=== PATIENT | female | born 1975 | race Caucasian/White ===

== ENCOUNTER 2019-03-05 10:36 | Inpatient (IN) | payer MEDICAID ==
[~2019-03-05] VITALS: Ht 175.3 cm; Wt 79.4 kg
[2019-03-05 10:38] VITALS: BP 120/80
--- NOTE | 2019-03-05 10:38 | NUR ---
Patient BIBA BLS accompanied by [place] [employer], transferred to bed 5. RN evaluating patient at bedside.
--- NOTE | 2019-03-05 10:47 | NUR ---
Dr. Red evaluating patient at bedside.
--- NOTE | 2019-03-05 11:02 | NUR ---
PHLEB at bedside.
--- NOTE | 2019-03-05 11:09 | NUR ---
brought in by EMS from fire station 151 pt walked into fire station asking for help; suicidal ideation---plan is to overdose on meds denies homicidal ideation; denies visual/auditory hallucinations admits to have drank alcohol today. DENIES N/V/D; SKIN IS PINK/WARM/DRY; AAOX4 WITH EVEN AND STEADY GAIT; LUNGS CLEAR BL; HR EVEN AND REGULAR; PT DENIES ANY FEVER, CP, SOB, OR COUGH AT THIS TIME; PATIENT STATES PAIN OF 7/10 AT THIS TIME ON HER MID-ABDOMINAL, RADIATES TO UPPER BACK; VSS; PATIENT POSITIONED FOR COMFORT; HOB ELEVATED; BEDRAILS UP X2; BED DOWN. ER MD MADE AWARE OF PT STATUS.
[2019-03-05 11:16] LABS: BASOPHILS # (AUTO) 0.2 K/uL (0.00-0.22); BASOPHILS % (AUTO) 4.1 % (0.0-2.0); EOSINOPHILS # (AUTO) 0.1 K/uL (0-0.4); HEMATOCRIT 31.3 % (36-48); HEMOGLOBIN 9.8 g/dL (12.0-16.0); LYMPHOCYTES # (AUTO) 0.9 K/uL (2.5-16.5); MEAN CORPUSCULAR HEMOGLOBIN 23 pg (27-31); MEAN CORPUSCULAR HGB CONC 31 g/dL (33-37); MONOCYTES # (AUTO) 0.3 K/uL (0.8-1.0); MONOCYTES % (AUTO) 6.5 % (1.7-9.3); NEUTROPHILS # (AUTO) 3.7 K/uL (1.8-7.7); PLATELET COUNT (AUTO) 332 K/uL (140-450); RED BLOOD CELL COUNT(AUTO) 4.23 MIL/uL (4.20-5.40); RED CELL DISTRIBUTION WIDTH 21.5 % (11.6-13.7); WHITE BLOOD COUNT (AUTO) 5.2 K/uL (4.8-10.8)
[2019-03-05] MEDS ORDERED: LORazepam 1 MG TAB PO ONE (11:25)
[2019-03-05 11:27] LABS: ANION GAP 19.1 (8-16); CARBON DIOXIDE 18.9 mmol/L (21-32); CHLORIDE 104 mmol/L (98-107); CREATININE 0.7 mg/dL (0.6-1.3); GFR ARICAN-AMERICAN 119 mL/min (>90); GLUCOSE 81 mg/dL (74-106); SODIUM SERUM 138 mmol/L (136-145); UREA NITROGEN, BLOOD 17 mg/dL (7-18)
[2019-03-05 11:32] LABS: BARBITURATE, URINE NEG. ng/ml (NEG <=200); BENZODIAZEPINE, URINE NEG. ng/mL (NEG <=200); CANNABINOID, URINE NEG. ng/mL (NEG <=50); COCAINE, URINE NEG. ng/mL (NEG <=300); OPIATE, URINE NEG. ng/mL (NEG <=2000); PHENCYCLIDINE SCREEN,URINE NEG. ng/mL (NEG <=25)
[2019-03-05 11:35] LABS: ALBUMIN 3.5 g/dL (3.4-5.0); ASPARTATE AMINOTRANSFERASE 85 U/L (15-37); TOTAL BILIRUBIN 0.3 mg/dL (0.0-1.0)
[2019-03-05 11:36] LABS: ACETAMINOPHEN < 0.5 ug/ml (10-30); SALICYLATE < 2.8 mg/dL (2.8-20.0)
[2019-03-05 11:41] LABS: LYMPHOCYTES % (AUTO) 17.3 % (20.5-51.1); NEUTROPHILS % (AUTO) 70.1 % (42.2-75.2)
[2019-03-05] MEDS ORDERED: NACL 0.9% 1,000 ML IV ONE (12:00)
--- NOTE | 2019-03-05 12:05 | NUR ---
PT STATED SHE DOES NOT HAVE PLAN TO HURT HERSELF AT THIS MOMENT.
--- NOTE | 2019-03-05 14:15 | NUR ---
PHLEB at bedside for secondary blood draw.
--- NOTE | 2019-03-05 14:41 | NUR ---
Telepsychiatry consultation ordered as requested by Dr. Red.
--- NOTE | 2019-03-05 14:53 | NUR ---
Call Center is aware of patient and will contact contracted [facility] psych facilities. Chart has been received and will update the ED when a bed becomes available.
[2019-03-05] MEDS ORDERED: KETOROLAC 30 MG/ML VIAL IVP ONE (15:15)
[2019-03-05] MEDS ORDERED: PANTOPRAZOLE 40 MG INJ VIAL IVP ONE (15:15)
--- NOTE | 2019-03-05 17:12 | NUR ---
, PSYCHIATRIST CALLED FOR MEDICAL INFORMATION REGARDING PATIENT PRIOR TO HIS EVALUATION TO PATIENT.
--- NOTE | 2019-03-05 17:21 | NUR ---
TELEPSYCH.EVAL. IN PROGRESS
[2019-03-05] MEDS ORDERED: LORazepam 2 MG/ML VIAL IVP ONE (17:35)
[2019-03-05] MEDS ORDERED: ACETAMINOPHEN 325 MG TAB PO PRN (17:45)
[2019-03-05] MEDS ORDERED: ONDANSETRON 4 MG/2 ML VIAL IM/IVP PRN (17:45)
[2019-03-05] MEDS ORDERED: DOCUSATE SODIUM 100 MG GELCAP PO PRN (17:45)
--- NOTE | 2019-03-05 17:55 | NUR ---
PT'S IV ON LEFT HAND HAS BEEN REMOVED. SKIN IS NORMAL, NO ERYTHEMA OR EDEMA.
[2019-03-05 18:24] LABS: PROTHROMBIN TIME 8.9 secs (10.8-13.4)
[2019-03-05 18:33] LABS: MAGNESIUM 2.2 mg/dL (1.8-2.4); PHOSPHORUS 4.6 mg/dL (2.5-4.9); THYROID STIMULATING HORMONE 9.35 uIU/mL (0.34-3.74)
--- NOTE | 2019-03-05 19:10 | NUR ---
RECEIVED FROM REPORT FROM ÁNGEL LERNER. TRANSFER OF CARE AT THIS TIME.
--- NOTE | 2019-03-05 19:10 | NUR ---
ENDORSED PT TO PM NURSE.
[2019-03-05] MEDS ORDERED: NACL 0.9% 1,000 ML IV SCH (20:00)
--- NOTE | 2019-03-05 20:10 | NUR ---
PT AWAKE AND SITTING IN BED. VSS. EMT BEDSIDE, 1:1 MONITORING. SAFETY PRECAUTIONS IN PLACE. WILL CONTINUE TO MONITOR.
[2019-03-05] MEDS ORDERED: DICYCLOMINE HCL LIQUID 20 MG, ALUMINUM HYD/MAG/SIMETHICONE 30 ML, LIDOCAINE VISCOUS 2% ... PO ONE ×3 (20:40)
[2019-03-05 21:05] VITALS: BP 130/69
--- NOTE | 2019-03-05 21:05 | NUR ---
Patient will be admitted to care of Dr. Ruiz. Admited to [facility]. Will go to room 109B. Belongings list completed. VSS at time of transport. Report to ÁNGEL Schultz. Transfer of care at this time.
--- NOTE | 2019-03-05 21:05 | NUR ---
RECEIVED BEDSIDE REPORT FROM COPPING MACHINE OPERATOR, PATIENT ON 5150 HOLD, SITTER AT BEDSIDE. PATIENT AMBULATORY, NO SIGNS OF ACUTE DISTRESS, IV IN RIGHT HAND 22 G SL, SKIN IS INTACT, PATIENT C/O OF DIARRHEA, WILL CALL DR FOR ORDERS. DRESSING INTACT, V/S STABLE, MRSA SCREEN COLLECTED AND SENT TO LAB, EXPLAINED PLAN OF CARE, OFFERED FOOD AND WATER. PATIENT C/O ANXIETY WILL CALL DR FOR ORDERS.
[2019-03-05] MEDS ORDERED: traMADol 50 MG TAB PO PRN (21:30)
--- NOTE | 2019-03-05 21:30 | NUR ---
CALLED DR MONZON NO ATIVAN AT THIS TIME DUE TO PATIENT RECENTLY RECEIVED ATIVAN, AND NO NEED FOR STOOL COLLECTION AT THIS TIME UNTIL STOOL IS SEEN TO BE DIARRHEA AND PATIENT ON RECENT ANTIBIOTICS.
[2019-03-05] MEDS ORDERED: GABA300C PO (21:34)
[2019-03-05] MEDS ORDERED: QUET25TA PO (21:34)
[2019-03-05] MEDS ORDERED: SYN.05 PO (21:34)
[2019-03-05] MEDS ORDERED: HYDR25CA1 PO (21:34)
--- NOTE | 2019-03-05 22:13 | NUR ---
New referral packet has been faxed out to [facility]. Call Center will update the unit when a bed becomes available.
--- NOTE | 2019-03-05 22:15 | NUR ---
EXPLAINED TO PATIENT NEED FOR URINE SAMPLE
[2019-03-05] MEDS: LORazepam 2 MG/ML VIAL IM/IVP PRN (22:22)
--- NOTE | 2019-03-05 22:31 | NUR ---
GAVE ATIVAN FOR ANXIETY AND STARTED NS AT 100 ML/HR
[2019-03-05 23:47] VITALS: BP 115/60
--- NOTE | 2019-03-06 01:03 | NUR ---
PATIENT ASLEEP IN BED, WILL CONTINUE WITH 1:1 SITTER.
[2019-03-06] MEDS ORDERED: LORazepam 2 MG/ML VIAL IM/IVP PRN (01:40)
--- NOTE | 2019-03-06 01:53 | NUR ---
SPOKE WITH DR MONZON REGARDING BANANA BAG. TOLD BY CHARGE NURSE ELIJAH WE CANNOT MIX BANANA BAG COMPONENTS ON TELE. TOLD TO ONLY GIVE IM THIAMINE INJECTION AND OTHER COMPONENTS WILL BE MIXED IN MORNING WITH PHARMACY.
[2019-03-06] MEDS ORDERED: MAG SULF 2000 MG/WATER PREMIX 50 ML IV ONE (02:00)
[2019-03-06] MEDS ORDERED: FOLIC ACID 5 MG/ML SYR IM SCH (02:00)
[2019-03-06] MEDS ORDERED: THIAMINE 200 MG/2 ML VIAL IM SCH (02:00)
[2019-03-06] MEDS ORDERED: MULTIVITAMIN-12 10 ML in NACL 0.9% 1,000 ML IV ONE (02:00)
--- NOTE | 2019-03-06 02:28 | NUR ---
Follow up calls were made to contracted [facility] facilities for bed placement. Still no bed vacancies at this time. Call Center will follow up in the AM to check for pending discharges.
--- NOTE | 2019-03-06 02:30 | NUR ---
PLACED PATIENT ON SEIZURE PRECAUTIONS
[2019-03-06] MEDS: DEXT 5% / NACL 0.45% 1,000 ML IV SCH ×3 (03:45→21:25)
--- NOTE | 2019-03-06 03:49 | NUR ---
GAVE THIAMINE AND FOLIC ACID IM. STARTED D5W/0.45 NS AT 100 ML/HR
[2019-03-06] MEDS: LEVOTHYROXINE 0.05 MG TAB PO SCH (05:36)
--- NOTE | 2019-03-06 05:58 | NUR ---
DUE MEDICATION GIVEN
--- NOTE | 2019-03-06 07:23 | NUR ---
ENDORSED PATIENT TO DAY SHIFT NURSE FOR CONTINUITY OF CARE. PATIENT STABLE.
--- NOTE | 2019-03-06 07:24 | NUR ---
RECEIVED BEDSIDE REPORT FROM SERVICE AGENT NURSE. PATIENT IS AWAKE, ALERT AND ORIENTEDX4. NO SIGNS OF DISTRESS ON RA. SKIN INTACT. IV ON R HAND 22G INFUSING D5 1/2NS AT 100. CLEAN, DRY AND INTACT. PATIENT IS AMBULATORY. CONTINENT. 1:1 SITTER AT BEDSIDE. PATIENT ABLE TO MAKE NEEDS KNOWN. WILL CONTINUE TO MONITOR THE PATIENT. BED IN LOW POSITION.
[2019-03-06 08:00] VITALS: BP 115/82
--- NOTE | 2019-03-06 08:20 | NUR ---
PATIENT HAS BEEN SCREENED AND CATEGORIZED LOW NUTRITION RISK. PATIENT WILL BE SEEN WITHIN 7 DAYS OF ADMISSION. 03/12/[address]
[2019-03-06] MEDS ORDERED: MAGNESIUM SULFATE IV SCH (08:30)
[2019-03-06] MEDS ORDERED: MULTIVITAMIN IV SCH (08:30)
[2019-03-06] MEDS ORDERED: NACL 0.9% IV SCH (08:30)
[2019-03-06] MEDS: chlordiazePOXIDE 25 MG CAP PO SCH ×3 (08:35→16:42)
[2019-03-06] MEDS: MULTIVITAMIN 1 TAB PO SCH (08:35)
[2019-03-06] MEDS: GABAPENTIN 300 MG CAP PO SCH ×3 (08:35→16:42)
[2019-03-06] MEDS: FOLIC ACID 1 MG TAB PO SCH (08:36)
[2019-03-06] MEDS: FERROUS SULFATE 325 MG TABEC PO SCH (08:36)
[2019-03-06] MEDS: PANTOPRAZOLE 40 MG INJ VIAL IVP SCH (08:36)
[2019-03-06] MEDS: hydrOXYzine PAMOATE 25 MG CAP PO SCH ×3 (08:36→16:42)
--- NOTE | 2019-03-06 08:44 | NUR ---
ADMINISTERED MEDS. PATIENT TOLERATED WELL. EDUCATED ON SIDE EFFECTS. MAGNESIUM WAS INCORPORATED IN THE BANANA BAG, WILL CONTINUE TO MONITOR THE PATIENT. SITTER AT BEDSIDE
[2019-03-06 08:47] LABS: BASOPHILS % (AUTO) 1.1 % (0.0-2.0); EOSINOPHILS # (AUTO) 0.2 K/uL (0-0.4); EOSINOPHILS % (AUTO) 6.5 % (0.0-4.0); HEMATOCRIT 28.9 % (36-48); HEMOGLOBIN 9.2 g/dL (12.0-16.0); LYMPHOCYTES # (AUTO) 0.8 K/uL (2.5-16.5); LYMPHOCYTES % (AUTO) 34.6 % (20.5-51.1); MEAN CORPUSCULAR HEMOGLOBIN 24 pg (27-31); MEAN CORPUSCULAR HGB CONC 32 g/dL (33-37); MEAN CORPUSCULAR VOLUME 74.5 fL (80-94); MONOCYTES # (AUTO) 0.4 K/uL (0.8-1.0); MONOCYTES % (AUTO) 14.7 % (1.7-9.3); NEUTROPHILS % (AUTO) 43.1 % (42.2-75.2); PLATELET COUNT (AUTO) 291 K/uL (140-450); RED BLOOD CELL COUNT(AUTO) 3.88 MIL/uL (4.20-5.40); RED CELL DISTRIBUTION WIDTH 21.7 % (11.6-13.7); WHITE BLOOD COUNT (AUTO) 2.4 K/uL (4.8-10.8)
[2019-03-06] MEDS ORDERED: hydrOXYzine PAMOATE 25 MG CAP PO SCH (09:00)
[2019-03-06] MEDS ORDERED: PANTOPRAZOLE 40 MG INJ VIAL IVP SCH (09:00)
[2019-03-06] MEDS ORDERED: SODIUM FERRIC GLUCONATE 125 MG in NACL 0.9% 100 ML IV ONE (09:00)
[2019-03-06] MEDS: LORazepam 2 MG/ML VIAL IM/IVP PRN ×3 (10:31→21:25)
[2019-03-06] MEDS: KETOROLAC 15 MG/ML VIAL IM PRN ×2 (10:31→18:36)
--- NOTE | 2019-03-06 10:41 | NUR ---
ADMINISTERED PRN PAIN MED AND ANXIETY MED. PATIENT TOLERATED WELL. EDUCATED ON SIDE EFFECTS. PATIENT ON THE PHONE WITH MOTHER. 1:1 SITTER AVAILABLE. WILL CONTINUE TO MONITOR
--- NOTE | 2019-03-06 12:00 | NUR ---
PATIENT IS SLEEPING. NO SIGNS OF DISTRESS. 1:1 SITTER AT BEDSIDE
[2019-03-06] MEDS ORDERED: IBUPROFEN 600 MG TAB PO PRN (13:20)
[2019-03-06] MEDS ORDERED: KETOROLAC 15 MG/ML VIAL IVP PRN (13:20)
[2019-03-06 13:50] LABS: ANION GAP 16.3 (8-16); CARBON DIOXIDE 21.7 mmol/L (21-32); CREATININE 0.6 mg/dL (0.6-1.3)
[2019-03-06 13:52] LABS: MAGNESIUM 2.3 mg/dL (1.8-2.4)
[2019-03-06 13:53] LABS: CHOL/HDL RATIO 2.2 (1-4.5)
[2019-03-06 13:56] LABS: BILIRUBIN,DIRECT 0.1 mg/dL (0.0-0.3); TOTAL BILIRUBIN 0.6 mg/dL (0.0-1.0)
--- NOTE | 2019-03-06 14:20 | NUR ---
ADMINISTERED MEDS. PATIENT TOLERATED WELL. EDUCATED ON SIDE EFFECTS. WILL CONTINUE TO MONITOR THE PATIENT.
--- NOTE | 2019-03-06 15:55 | NUR ---
Chart faxed to [facility] and [facility] for review.
[2019-03-06 16:00] VITALS: BP 136/89
[2019-03-06 16:28] LABS: APPEARANCE,URINE HAZY (CLEAR); BILIRUBIN,URINE NEGATIVE (NEGATIVE); BLOOD, URINE NEGATIVE (NEGATIVE); COLOR,URINE DARK YELLOW (YELLOW); LEUKOCYTE ESTERASE ,URINE TRACE (NEGATIVE); NITRITE, URINE POSITIVE (NEGATIVE); UGLUCOSE NEGATIVE (NEGATIVE)
[2019-03-06 16:32] LABS: RBC,URINE 0-5 /HPF (0-5)
--- NOTE | 2019-03-06 16:45 | NUR ---
ADMINISTERED MEDS AND PRN ANXIETY MEDS. PATIENT SAYS SHE FEELS SO ANXIOUS AND SHE HAS NOTHING TO DO. PATIENT TOLERATED WELL. EDUCATED ON SIDE EFFECTS. WILL CONTINUE TO MONITOR. PATIENT SAID SHE IS BORED AND I ASKED CARROT TIER TO BRING SOME MAGAZINES. PATIENT READING MAGAZINES AT THIS TIME
--- NOTE | 2019-03-06 18:36 | NUR ---
ADMINISTERED PRN PAIN MED. PATIENT TOLERATED WELL. EDUCATED ON SIDE EFFECTS. WILL CONTINUE TO MONITOR THE PATIENT
[2019-03-06] MEDS ORDERED: DICYCLOMINE HCL LIQUID 20 MG, ALUMINUM HYD/MAG/SIMETHICONE 30 ML, LIDOCAINE VISCOUS 2% ... PO SCH ×3 (19:00)
--- NOTE | 2019-03-06 19:00 | NUR ---
GAVE BEDSIDE REPORT TO HOT STRIP FINISHER NURSE. PATIENT ENDORSED IN STABLE CONDITION
--- NOTE | 2019-03-06 19:15 | NUR ---
RECEIVED PT ON BED, AAOX4, ABLE TO MAKE NEEDS KNOWN, PT COMPLAINING OF ABDOMINAL PAIN, VITAL SIGNS STABLE, WILL MEDICATE PRN, CALM AND COOPERATIVE AT THIS TIME, BANANA BAG INFUSING WELL, TOLERATING REGULAR DIET, ON SEIZURE PRECAUTION WITH SIDE RAILS UP AND PADDED, SITTER IN PLACE.
[2019-03-06] MEDS: MORPHINE SULFATE 2 MG/ML SYR IVP PRN (19:37)
[2019-03-06] MEDS: QUEtiapine FUMARATE 25 MG TAB PO SCH (20:10)
--- NOTE | 2019-03-06 21:30 | NUR ---
PATIENT AMBULATED IN THE HALLWAY WITH STEADY GAIT ACCOMPANIED BY SITTER. PT. BACK IN BED COMPLAINING OF ANXIETY MEDICATED WITH ATIVAN PRN. .MONITOR CLOSELY.
--- NOTE | 2019-03-06 23:00 | NUR ---
MADE ROUNDS ,PATIENT SLEEPING ,NO SIGNS OF DISTRESS.SITTER IN PLACE.
--- NOTE | 2019-03-07 00:37 | NUR ---
Follow up calls were made to contracted [facility] facilities regarding bed placement. Currently no beds available at this time for patient. [facility], spoke with Amrit. [facility], spoke with Vandana. [facility], spoke with Elias. [facility], spoke with Fallon. [facility], spoke with Deanna. [facility], spoke with Aleyda. [facility] , spoke with [place]. Call Center will update the unit when a bed becomes available for patient.
[2019-03-07 01:00] VITALS: BP 122/84
[2019-03-07] MEDS: MORPHINE SULFATE 2 MG/ML SYR IVP PRN ×4 (01:50→20:35)
--- NOTE | 2019-03-07 01:50 | NUR ---
PATIENT AWAKE ON BED ,NOT IN RESPIRATORY DISTRESS ,COMPLAINING OF ABDOMINAL PAIN , MEDICATE WITH MORPHINE SO4 PRN ,EDUCATE PATIENT ABOUT SIDE EFFECTS OF MED. VERBALIZE UNDERSTANDING.WILL CONTINUE MONITOR
--- NOTE | 2019-03-07 03:50 | NUR ---
MADE ROUNDS ,PATIENT SLEEPING ON BED ,NO SIGNS OF DISTRESS .SITTER IN PLACE
--- NOTE | 2019-03-07 04:50 | NUR ---
PATIENT AWAKE ON BED ,NOT IN RESPIRATORY DISTRESS ,V/S STABLE ,IV SITE INTACT AND PATENT.PATIENT COMPLAINING OF ANXIETY .ANTI ANXIETY MED. GIVEN ORDERED .EDUCATE PATIENT ABOUT SIDE EFFECTS OF MED.BED IN LOW POSITION,CALL LIGHT WITH IN REACH,WILL CONTINUE MONITOR.
[2019-03-07] MEDS: LORazepam 2 MG/ML VIAL IM/IVP PRN ×3 (04:53→18:48)
--- NOTE | 2019-03-07 06:00 | NUR ---
PATIENT AWAKE ON BED ,NO SIGN OF DISTRESS . DUE MED. GIVEN ORDERED .EDUCATE PT. ABOUT SIDE EFFECTS OF MED.,PT VERBALIZE UNDERSTANDING .WILL CONTINUE MONITOR.CALL LIGHT WITHIN REACH.
[2019-03-07] MEDS: LEVOTHYROXINE 0.05 MG TAB PO SCH (06:07)
--- NOTE | 2019-03-07 07:12 | NUR ---
PT SLEEPING, NO SIGNS OF DISTRESS, BEDSIDE REPORT GIVEN TO RN NAYLA FOR CONTINUITY OF CARE.
--- NOTE | 2019-03-07 07:13 | NUR ---
RECEIVED BEDSIDE REPORT FROM NIGHT NURSE. PT STABLE WITH NO OBVIOUS SIGNS OF DISTRESS AND NO REQUESTS AT THIS TIME. PT RIGHT HAND IV INTACT AND PATENT, AND INFUSING NS 100 AT THIS TIME. PT IS AOX4 WITH SKIN INTACT.
[2019-03-07 07:28] LABS: BASOPHILS % (AUTO) 0.7 % (0.0-2.0); EOSINOPHILS # (AUTO) 0.2 K/uL (0-0.4); EOSINOPHILS % (AUTO) 6.9 % (0.0-4.0); HEMATOCRIT 26.9 % (36-48); HEMOGLOBIN 8.4 g/dL (12.0-16.0); LYMPHOCYTES # (AUTO) 0.9 K/uL (2.5-16.5); LYMPHOCYTES % (AUTO) 40.7 % (20.5-51.1); MEAN CORPUSCULAR HEMOGLOBIN 23 pg (27-31); MEAN CORPUSCULAR HGB CONC 31 g/dL (33-37); MEAN CORPUSCULAR VOLUME 74.8 fL (80-94); MONOCYTES # (AUTO) 0.3 K/uL (0.8-1.0); MONOCYTES % (AUTO) 12.1 % (1.7-9.3); NEUTROPHILS # (AUTO) 0.9 K/uL (1.8-7.7); NEUTROPHILS % (AUTO) 39.6 % (42.2-75.2); PLATELET COUNT (AUTO) 252 K/uL (140-450); RED CELL DISTRIBUTION WIDTH 21.2 % (11.6-13.7); WHITE BLOOD COUNT (AUTO) 2.3 K/uL (4.8-10.8)
[2019-03-07] MEDS: NACL 0.9% 1,000 ML IV SCH ×2 (07:28→17:27)
[2019-03-07 08:00] VITALS: BP 120/77
[2019-03-07 08:09] LABS: ANION GAP 11.6 (8-16); CARBON DIOXIDE 24.1 mmol/L (21-32); CREATININE 0.5 mg/dL (0.6-1.3); POTASSIUM 3.7 mmol/L (3.5-5.1)
[2019-03-07] MEDS: FERROUS SULFATE 325 MG TABEC PO SCH (08:16)
[2019-03-07] MEDS: FOLIC ACID 1 MG TAB PO SCH (08:16)
[2019-03-07] MEDS: MULTIVITAMIN 1 TAB PO SCH (08:17)
[2019-03-07] MEDS: hydrOXYzine PAMOATE 25 MG CAP PO SCH ×3 (08:17→16:55)
[2019-03-07] MEDS: GABAPENTIN 300 MG CAP PO SCH ×3 (08:17→16:55)
[2019-03-07] MEDS: chlordiazePOXIDE 25 MG CAP PO SCH ×3 (08:18→16:55)
[2019-03-07] MEDS: PANTOPRAZOLE 40 MG INJ VIAL IVP SCH (08:18)
[2019-03-07 08:20] LABS: MAGNESIUM 2.2 mg/dL (1.8-2.4); PHOSPHORUS 3.1 mg/dL (2.5-4.9)
--- NOTE | 2019-03-07 08:20 | NUR ---
ADMINISTERED MORNING MEDICATIONS, REVIEWED EDUCATION OF INDICATION AND SIDE EFFECTS. PT STABLE WITH NO OBVIOUS SIGNS OF DISTRESS. PT HAS NO FURTHER REQUESTS AT THIS TIME.
[2019-03-07 08:40] LABS: HEPATITIS A ANTIBODY IGM Negative (Negative); HEPATITIS B SURFACE ANTIBODY Reactive (.); HEPATITIS B SURFACE ANTIGEN Negative (Negative)
--- NOTE | 2019-03-07 10:10 | NUR ---
PT SLEEPING IN BED, NO OBVIOUS SIGNS OF DISTRESS BREATHING EQUAL AND UNLABORED.
--- NOTE | 2019-03-07 10:50 | NUR ---
Pt Packet on file at the following facilities pending D/C. Currently no beds available. [facility] Will contact with any updates. Will continue looking for placement.
--- NOTE | 2019-03-07 11:50 | NUR ---
PT SLEEPING IN BED, NO OBVIOUS SIGNS OF DISTRESS BREATHING EQUAL AND UNLABORED.
--- NOTE | 2019-03-07 13:00 | NUR ---
PATIENT IS SLEEPING. NO SIGNS OF DISTRESS. WILL CONTINUE TO MONITOR THE PATIENT.
--- NOTE | 2019-03-07 13:55 | NUR ---
ADMINISTERED ATIVAN PRN PER PT REQUEST FOR ANXIETY. PT HAS NO FURTHER REQUESTS AND IS FREE OF OBVIOUS SIGNS OF DISTRESS.
--- NOTE | 2019-03-07 13:55 | NUR ---
ADMINISTERED MEDS. EDUCATED ON SIDE EFFECTS. PATIENT TOLERATED WELL. WILL CONTINUE TO MONITOR
--- NOTE | 2019-03-07 13:58 | NUR ---
[facility] CALLED [phone], FAX NUMBER [phone]. WHEN PATIENT IS MEDICALLY STABLE TO FAX NOTES TO [facility]KS FOR PLACEMENT.
[2019-03-07 14:09] LABS: ALBUMIN 2.6 g/dL (3.4-5.0); BILIRUBIN,DIRECT 0.1 mg/dL (0.0-0.3); TOTAL BILIRUBIN 0.3 mg/dL (0.0-1.0)
--- NOTE | 2019-03-07 15:03 | NUR ---
PT SLEEPING IN BED, BREATHING EQUAL AND UNLABORED WITHOUT OBVIOUS SIGNS OF ACUTE DISTRESS.
[2019-03-07 16:00] VITALS: BP 113/79
--- NOTE | 2019-03-07 16:00 | NUR ---
PT IS FREE OF SIGNS OF OBVIOUS DISTRESS SITTING UP IN BED WITH NO REQUESTS OR COMPLAINTS, BREATHING EQUAL AND UNLABORED.
--- NOTE | 2019-03-07 16:55 | NUR ---
ADMINISTERED MEDICATIONS, PATIENT RESTING IN BED FREE OF OBVIOUS SIGNS OF ACUTE DISTRESS AND HAS NO REQUESTS AT THIS TIME.
[2019-03-07] MEDS: KETOROLAC 15 MG/ML VIAL IM PRN (18:48)
--- NOTE | 2019-03-07 19:03 | NUR ---
GAVE BEDSIDE REPORT TO GRANITE POLISHER APPRENTICE NURSE. PT STABLE WITH NO OBVIOUS SIGNS OF DISTRESS AT THIS TIME. ENDORSED NIGHT NURSE TO PAIN NECESSARY.
--- NOTE | 2019-03-07 19:25 | NUR ---
RECIEVED PT. AAOX4, IV SITE PATENT AND INTACT . PLAN OF CARE DISCUSSED WITH THE PT. PATIENT VERBALIZE UNDERSTANDING ,PT.CALM AND COOPERATIVE . SITTER IN PLACE. WILL MONITOR
--- NOTE | 2019-03-07 20:15 | NUR ---
PT. WALK IN THE [place] WAY ACCOMPANIED WITH SITTER
--- NOTE | 2019-03-07 20:30 | NUR ---
PATIENT BACK IN THE ROOM ,COMPLAINING ABDOMINAL PAIN ,MORPHINE SO4 GIVEN PRN ,WILL MONITOR PT.
[2019-03-07] MEDS: QUEtiapine FUMARATE 25 MG TAB PO SCH (20:35)
--- NOTE | 2019-03-07 21:40 | NUR ---
PATIENT AWAKE,NO SIGNS OF DISTRESS ,COMPLAINING OF UNABLE TO SLEEP .REFERRED TO DR. TELLEZ. V/S STABLE. ZOLPIDEM 5MG GIVEN PO OREDERED .EDUCATE PT. ABOUT SIDE EFFECTS OF MED.SIDE RAILS UP , BED IN LOW POSITION. WILL CONTINUE MONITOR
[2019-03-07] MEDS ORDERED: ZOLPIDEM 5 MG TAB PO SCH (22:30)
--- NOTE | 2019-03-07 23:30 | NUR ---
PATIENT SLEEPING COMFORTABLY ON BED
[2019-03-08] VITALS: BP 121/77
--- NOTE | 2019-03-08 02:00 | NUR ---
VISITED PATIENT ,RR = 20/MIN ,SLEEPING ON BED COMFORTABLY
[2019-03-08] MEDS: LORazepam 2 MG/ML VIAL IM/IVP PRN (03:19)
--- NOTE | 2019-03-08 03:19 | NUR ---
COMPLAINING OF ANXIETY,V/S STABLE.NO SIGNS OF DISTRESS .ATIVAN GIVEN ORDERED .EDUCATE PT.ABOUT SIDE EFFECTS OF MED.VERBALIZE UNDERSTANDING.WILL CONTINUE TO MONITOR
[2019-03-08] MEDS: NACL 0.9% 1,000 ML IV SCH ×2 (04:10→07:03)
[2019-03-08] MEDS: MORPHINE SULFATE 2 MG/ML SYR IVP PRN ×2 (05:16→12:05)
--- NOTE | 2019-03-08 05:16 | NUR ---
PATIENT AWAKE ,NO SIGNS OF DISTRESS ,COMPLAINING OF ABDOMINAL PAIN .MORPHINE SO4 PRN GIVEN ORDERED.EDUCATE PATIENT ABOUT SIDE EFFECTS OF MEDICINE.VERBALIZE UNDERSTANDING.IV SITE INTACT AND PATENT,IVF INFUSING WELL.PT. PT. NO STILL NO BM ,PT.STATED REGULAR BM EVERY 2 TO 3 DAYS ,PRUNE JUICE PROVIDED.WILL CONTINUE TO MONITOR.
[2019-03-08] MEDS: LEVOTHYROXINE 0.05 MG TAB PO SCH (05:43)
[2019-03-08 06:50] LABS: BASOPHILS % (AUTO) 0.8 % (0.0-2.0); EOSINOPHILS # (AUTO) 0.2 K/uL (0-0.4); EOSINOPHILS % (AUTO) 7.7 % (0.0-4.0); HEMATOCRIT 27.4 % (36-48); HEMOGLOBIN 8.5 g/dL (12.0-16.0); LYMPHOCYTES % (AUTO) 40.4 % (20.5-51.1); MEAN CORPUSCULAR HEMOGLOBIN 24 pg (27-31); MEAN CORPUSCULAR HGB CONC 31 g/dL (33-37); MEAN CORPUSCULAR VOLUME 75.8 fL (80-94); MONOCYTES # (AUTO) 0.3 K/uL (0.8-1.0); MONOCYTES % (AUTO) 13.3 % (1.7-9.3); NEUTROPHILS % (AUTO) 37.8 % (42.2-75.2); PLATELET COUNT (AUTO) 234 K/uL (140-450); RED BLOOD CELL COUNT(AUTO) 3.61 MIL/uL (4.20-5.40); RED CELL DISTRIBUTION WIDTH 21.4 % (11.6-13.7); WHITE BLOOD COUNT (AUTO) 2.6 K/uL (4.8-10.8)
[2019-03-08 07:09] LABS: ANION GAP 12.1 (8-16); CARBON DIOXIDE 23.4 mmol/L (21-32); CREATININE 0.7 mg/dL (0.6-1.3); POTASSIUM 3.5 mmol/L (3.5-5.1)
--- NOTE | 2019-03-08 07:15 | NUR ---
PATIENT SLEEPING ON BED ,NO SIGNS OF RESPIRATORY DISTRESS NOTED. ENDORSED TO AM SHIFT NURSE TAINA FOR CONTINUITY OF CARE
[2019-03-08 07:16] LABS: PHOSPHORUS 3.2 mg/dL (2.5-4.9)
--- NOTE | 2019-03-08 07:16 | NUR ---
RECEIVED ENDORSEMENT FROM VICE PRESIDENT PLANNING NURSE. PT IS SLEEPING, EASILY AROUSABLE. PT IS AAOX4, RESPIRATIONS ARE EVEN AND UNLABORED ON ROOM AIR. PAIN IS AT A TOLERABLE LEVEL. RIGHT HAND 22 G IV INTACT, PATENT, AND INFUSING IVF. PLAN OF CARE WAS REVIEWED WITH PT.PT VERBALIZED UNDERSTANDING. SAFETY MEASURES IN PLACE, CALL LIGHT WITHIN REACH. WILL CONTINUE TO MONITOR.
[2019-03-08 08:00] VITALS: BP 110/69
[2019-03-08] MEDS: GABAPENTIN 300 MG CAP PO SCH ×3 (08:38→16:03)
[2019-03-08] MEDS: chlordiazePOXIDE 25 MG CAP PO SCH ×3 (08:38→16:04)
[2019-03-08] MEDS: hydrOXYzine PAMOATE 25 MG CAP PO SCH ×3 (08:38→16:03)
[2019-03-08] MEDS: MULTIVITAMIN 1 TAB PO SCH (08:39)
[2019-03-08] MEDS: FERROUS SULFATE 325 MG TABEC PO SCH (08:39)
[2019-03-08] MEDS: FOLIC ACID 1 MG TAB PO SCH (08:39)
[2019-03-08] MEDS: KETOROLAC 15 MG/ML VIAL IM PRN (08:40)
[2019-03-08] MEDS ORDERED: KETOROLAC 15 MG/ML VIAL IM/IVP PRN (08:45)
[2019-03-08] MEDS ORDERED: PANTOPRAZOLE 40 MG TABEC PO SCH (09:00)
[2019-03-08] MEDS ORDERED: IBUPROFEN 600 MG TAB PO PRN (09:05)
--- NOTE | 2019-03-08 12:10 | NUR ---
PT C/O OF 8/10 PAIN TO ABDOMINAL AREA. ADMINISTERED PRN MORPHINE. WILL CONTINUE TO MONITOR.
--- NOTE | 2019-03-08 15:30 | NUR ---
PT AMBULATED TO THE [facility] WITH STEADY GAIT. IV WAS REMOVED, MINIMAL BLEEDING CANNULA INTACT. PT STABLE. Addendum: 03/08/19 at 1839 by Rosa Matias RN LEFT THE UNIT AT 1730
[2019-03-08 16:00] VITALS: BP 128/83
--- NOTE | 2019-03-08 16:30 | NUR ---
Garcia from [facility] in [place] in speakerphone with pt. Per Garcia, bed is open for pt. Pt agree to use public transport. Bus pass to be provided per caseworker.
--- NOTE | 2019-03-08 16:33 | NUR ---
PER KOSTA BYRNE [phone] AT [facility], IF PATIENT IS DISCHARGING TODAY, THEY ARE ABLE TO TAKE THE PATIENT BACK IN. PRIMARY RN AND CHARGE NURSE MADE AWARE.
--- NOTE | 2019-03-08 17:00 | NUR ---
Written & verbal discharge instructions provided to pt. Pt verbalized understanding & agree with discharge plans. Right hand IV discontinued, IV cannula intact. No bleeding noted, site covered with dry dressing.
--- NOTE | 2019-03-08 17:30 | NUR ---
Pt discharged at this time. Amb off unit with steady gait. All belongings with pt upon departure. 2 bus passes provided by distribution warehouse manager.
== END 2019-03-08 15:30 | disposition home or self-care (01) | DRG 463 ==
LOC: MED 10:36 → MTU 17:42
PROVIDERS: ADMIT General Practice; ATTEND General Practice
DX: N39.0 Urinary tract infection, site not specified (principal); G92 Toxic encephalopathy; F25.0 Schizoaffective disorder, bipolar type; R45.851 Suicidal ideations; D50.9 Iron deficiency anemia, unspecified; E03.9 Hypothyroidism, unspecified; E66.9 Obesity, unspecified; F10.129 Alcohol abuse with intoxication, unspecified; F41.9 Anxiety disorder, unspecified; K76.9 Liver disease, unspecified; Z71.3 Dietary counseling and surveillance; Z88.1 Allergy status to other antibiotic agents; Z88.5 Allergy status to narcotic agent; Z88.2 Allergy status to sulfonamides; Z88.8 Allergy status to other drugs, medicaments and biological substances; Z79.899 Other long term (current) drug therapy; Z82.3 Family history of stroke; Z82.49 Family history of ischemic heart disease and other diseases of the circulatory system; Z68.25 Body mass index [BMI] 25.0-25.9, adult
CPT/HCPCS: 36415; 71045; 76705; 80048; 80053; 80076; 80305; 81001; 82150; 82728; 83036; 83540; 83690; 83735; 83880; 84100; 84443; 84484; 85025; 85045; 85610; 85730; 86704; 86706; 86708; 86709; 86803; 87081; 87086; 87186; 87340; 93005; 96361; 96374; 96375; 99285; A9153; C9113; G0480; G0482; J0696; J1885; J2060; J2270; J2916; J3411; J3475; J3490; J7030; J7060; Q0092; Q0177

== ENCOUNTER 2019-08-01 14:58 | Inpatient (IN) | payer MEDICAID ==
[~2019-08-01] VITALS: Ht 175.3 cm; Wt 111.1 kg
[~2019-08-01 14:58] MED LIST: GABA300C PO; HYDR25CA1 PO; QUET25TA PO; SYN.05 PO
--- NOTE | 2019-08-01 14:58 | NUR ---
Patient BIBA ACLS on a 5150 hold, transferred to bed 5. RN evaluating patient at bedside.
[2019-08-01 15:03] VITALS: BP 119/82
--- NOTE | 2019-08-01 15:22 | NUR ---
SPOKE W/ CORBIN AT POISON CONTROL, ADVISED TO GIVE PT CHARCOAL IF SHE IS NOT FEELING DROWSY, TO CLEAR PT MEDICALLY RUN LABS FOR TOMMY, ASA/TYLENOL, UDS. DO NOT GIVE PT FLUMANEZIL. OBS PT 4-6 HOURS IN ED FOR ANY AIRWAY ISSUES OR DECREASE B/P. SUPPORTIVE MEASURES IF PT SHOWS S/S, AND ADMIT PT FOR OBSERVATION IF PT REQUIRES AIRWAY MANAGEMNT OR BLOOD PRESSURE SUPPORT.
--- NOTE | 2019-08-01 15:23 | NUR ---
Dr. Kaur evaluating patient at bedside.
[2019-08-01] MEDS ORDERED: ACTIVATED CHARCOAL 50 GM/240 ML TUBE PO ONE (15:25)
--- NOTE | 2019-08-01 15:37 | NUR ---
CHARCOL PO ADMINISTERED BY RICHARDSON NEAL PER MD ORDER.
[2019-08-01 16:36] LABS: BASOPHILS % (AUTO) 0.3 % (0.0-2.0); EOSINOPHILS % (AUTO) 0.6 % (0.0-4.0); HEMATOCRIT 34.2 % (36-48); HEMOGLOBIN 10.4 g/dL (12.0-16.0); LYMPHOCYTES # (AUTO) 0.7 K/uL (2.5-16.5); LYMPHOCYTES % (AUTO) 12.5 % (20.5-51.1); MEAN CORPUSCULAR HEMOGLOBIN 24 pg (27-31); MEAN CORPUSCULAR HGB CONC 30 g/dL (33-37); MEAN CORPUSCULAR VOLUME 80.3 fL (80-94); MONOCYTES # (AUTO) 0.3 K/uL (0.8-1.0); MONOCYTES % (AUTO) 5.4 % (1.7-9.3); NEUTROPHILS # (AUTO) 4.3 K/uL (1.8-7.7); NEUTROPHILS % (AUTO) 81.2 % (42.2-75.2); PLATELET COUNT (AUTO) 239 K/uL (140-450); RED BLOOD CELL COUNT(AUTO) 4.26 MIL/uL (4.20-5.40); RED CELL DISTRIBUTION WIDTH 21.9 % (11.6-13.7); WHITE BLOOD COUNT (AUTO) 5.3 K/uL (4.8-10.8)
[2019-08-01 17:53] LABS: ANION GAP 20.4 (8-16); CARBON DIOXIDE 20.1 mmol/L (21-32); CHLORIDE 104 mmol/L (98-107); GFR ARICAN-AMERICAN 78 mL/min (>90); GLUCOSE 131 mg/dL (74-106); POTASSIUM 3.5 mmol/L (3.5-5.1); SODIUM SERUM 141 mmol/L (136-145); UREA NITROGEN, BLOOD 9 mg/dL (7-18)
[2019-08-01 17:57] LABS: ACETAMINOPHEN < 0.5 ug/ml (10-30); ALBUMIN 3.9 g/dL (3.4-5.0); ASPARTATE AMINOTRANSFERASE 32 U/L (15-37); SALICYLATE < 2.8 mg/dL (2.8-20.0); TOTAL BILIRUBIN 0.5 mg/dL (0.0-1.0)
[2019-08-01 18:09] LABS: APPEARANCE,URINE SL CLOUDY (CLEAR); BILIRUBIN,URINE NEGATIVE (NEGATIVE); BLOOD, URINE TRACE-I (NEGATIVE); COLOR,URINE YELLOW (YELLOW); LEUKOCYTE ESTERASE ,URINE 2+ (NEGATIVE); NITRITE, URINE NEGATIVE (NEGATIVE); UGLUCOSE NEGATIVE (NEGATIVE)
[2019-08-01 18:14] LABS: BARBITURATE, URINE NEG. ng/ml (NEG <=200); BENZODIAZEPINE, URINE POS. ng/mL (NEG <=200); CANNABINOID, URINE NEG. ng/mL (NEG <=50); COCAINE, URINE NEG. ng/mL (NEG <=300); OPIATE, URINE NEG. ng/mL (NEG <=2000); PHENCYCLIDINE SCREEN,URINE NEG. ng/mL (NEG <=25)
[2019-08-01] MEDS ORDERED: DOCUSATE SODIUM 100 MG GELCAP PO PRN (18:15)
[2019-08-01 18:40] LABS: RBC,URINE 0 /HPF (0-5); WBC,URINE 16-25 (MOD) /HPF (0-5)
--- NOTE | 2019-08-01 18:43 | NUR ---
POISON CONTROL CALLED IN AGAIN. PT'S STATUS WAS UPDATED TO THEM.
--- NOTE | 2019-08-01 18:45 | NUR ---
SPOKE WITH LOUIS FROM [facility], INFORMED OF PT STATUS.
[2019-08-01 19:05] LABS: PROTHROMBIN TIME 9.3 secs (10.8-13.4)
[2019-08-01] MEDS ORDERED: LACTULOSE 20 GM/30 ML UDC PO ONE (19:10)
--- NOTE | 2019-08-01 19:15 | NUR ---
TRANSFER OF CARE AND REPORT GIVEN FROM ÁNGEL COTTO. PT RESTING IN BED COMFORTABLY. VSS. WILL CONTINUE TO MONITOR.
[2019-08-01 19:22] LABS: CHOL/HDL RATIO 1.9 (1-4.5); FREE T4 (FREE THYROXINE) 0.75 ng/dL (0.76-1.46); MAGNESIUM 2.5 mg/dL (1.8-2.4); PHOSPHORUS 3.8 mg/dL (2.5-4.9); THYROID STIMULATING HORMONE 6.4 uIU/mL (0.34-3.74)
[2019-08-01] MEDS ORDERED: cefTRIAXone 1,000 MG VIAL ONE (19:35)
[2019-08-01] MEDS: NACL 0.9% 1,000 ML IV SCH (19:36)
--- NOTE | 2019-08-01 20:33 | NUR ---
Patient will be admitted to care of Dr. Fortune. Admited to Tele. Will go to room 110A. Belongings list completed. Report to ÁNGEL Jha.
--- NOTE | 2019-08-01 20:33 | NUR ---
Transfer of care and report given to ÁNGEL Jha
[2019-08-01 20:45] VITALS: BP 92/60
--- NOTE | 2019-08-01 20:45 | NUR ---
PATIENT ADMITTED TO THE UNIT FROM ED. PATIENT IS AWAKE AND ALERT BUT DROWSY. NO S/S OF DISTRESS AT THIS TIME. PT ON ROOM AIR. DENIES N/V. PATIENT IS ABLE TO ANSWER QUESTIONS AND MAKE NEEDS KNOWN. PATIENT IS CALM AND COOPERATIVE WITH CARE BUT STATES THAT SHE STILL FEELS SUICIDAL. PATIENT WITH 1:1 SITTER. BED PLACED IN THE LOWEST POSITION. WILL CONTINUE TO MONITOR
[2019-08-01] MEDS: HYDROcodone/APAP 7.5/325 MG 1 TAB PO PRN (20:49)
--- NOTE | 2019-08-01 23:38 | NUR ---
PATIENT ASLEEP IN BED AT THIS TIME. WITH 1:1 SITTER. WILL CONTINUE TO MONITOR
[2019-08-02 00:08] VITALS: BP 100/67
[2019-08-02 04:00] VITALS: BP 96/66
--- NOTE | 2019-08-02 04:00 | NUR ---
PATIENT HAD A BM IN BED. BED BATH GIVEN. LINENS CHANGED. PATIENT TURNED AND REPOSITIONED FOR COMFORT
[2019-08-02] MEDS: NACL 0.9% 1,000 ML IV SCH ×3 (04:37→21:09)
[2019-08-02] MEDS: HYDROcodone/APAP 7.5/325 MG 1 TAB PO PRN ×4 (06:01→21:08)
[2019-08-02 06:50] LABS: BASOPHILS % (AUTO) 0.3 % (0.0-2.0); EOSINOPHILS # (AUTO) 0.1 K/uL (0-0.4); EOSINOPHILS % (AUTO) 2.4 % (0.0-4.0); HEMATOCRIT 35.1 % (36-48); HEMOGLOBIN 10.7 g/dL (12.0-16.0); LYMPHOCYTES # (AUTO) 0.7 K/uL (2.5-16.5); LYMPHOCYTES % (AUTO) 24.5 % (20.5-51.1); MEAN CORPUSCULAR HEMOGLOBIN 25 pg (27-31); MEAN CORPUSCULAR HGB CONC 31 g/dL (33-37); MONOCYTES # (AUTO) 0.2 K/uL (0.8-1.0); MONOCYTES % (AUTO) 8.6 % (1.7-9.3); NEUTROPHILS # (AUTO) 1.9 K/uL (1.8-7.7); NEUTROPHILS % (AUTO) 64.2 % (42.2-75.2); PLATELET COUNT (AUTO) 193 K/uL (140-450); RED BLOOD CELL COUNT(AUTO) 4.39 MIL/uL (4.20-5.40); RED CELL DISTRIBUTION WIDTH 22.6 % (11.6-13.7); WHITE BLOOD COUNT (AUTO) 2.9 K/uL (4.8-10.8)
--- NOTE | 2019-08-02 07:28 | NUR ---
PT REPORT GIVEN AT BEDSIDE. PATIENT ENDORSED IN STABLE CONDITION
--- NOTE | 2019-08-02 07:30 | NUR ---
RECEIVED PT ON BED AAOX4. NO SOB NOTED. NO C/O PAIN AT THIS TIME. IV TO LT HAND PATENT AND INTACT. CHEST CLEAR. ABDOMEN SOFT, BOWEL SOUNDS PRESENT. NO EDEMA NOTED. NPO MAINTAINED. WILL MONITOR FOR ANY THOUGHTS OF HARMING SELF. WITH SITTER FOR 5150 HOLD (SUICIDAL IDEATION). INSTRUCTED PT TO CALL FOR ASSISTANCE. CALL LIGHT WITHIN REACH, VERBALIZED UNDERSTANDING.
[2019-08-02 07:50] LABS: ANION GAP 14.6 (8-16); CARBON DIOXIDE 24.7 mmol/L (21-32); POTASSIUM 3.3 mmol/L (3.5-5.1)
[2019-08-02 07:51] LABS: CREATININE 0.8 mg/dL (0.6-1.3)
[2019-08-02 08:00] VITALS: BP_SYST 95; BP_SYST 96; BP_DIAS 65; BP_DIAS 68
--- NOTE | 2019-08-02 08:49 | NUR ---
PATIENT HAS BEEN SCREENED AND CATEGORIZED LOW NUTRITION RISK. PATIENT WILL BE SEEN WITHIN 7 DAYS OF ADMISSION. 08/08/[address]
[2019-08-02] MEDS: LACTOBACILLUS RHAMNOSUS GG 1 EACH CAP PO SCH (09:00)
--- NOTE | 2019-08-02 10:00 | NUR ---
PT SEEN BY DR. AGUERO. NO NEW ORDERS. PT STILL METS CRITERIA FOR 5150 HOLD. WILL CONTINUE TO MONITOR.
[2019-08-02] MEDS ORDERED: KCL 20 MEQ/WATER INJ PREMIX 200 ML IV SCH (10:30)
[2019-08-02] MEDS: ONDANSETRON 4 MG/2 ML VIAL IM/IVP PRN (10:46)
--- NOTE | 2019-08-02 10:50 | NUR ---
PT C/O NAUSE. MEDICATED WITH ZOFRAN IVP. WILL MONITOR FOR FURTHER N&v.
[2019-08-02 12:00] VITALS: BP 96/65
--- NOTE | 2019-08-02 13:55 | NUR ---
PT WENT TO THE BATHROOM WITH MINIMAL ASSIST. ACTIVITY TOLERATED WELL.
--- NOTE | 2019-08-02 15:01 | NUR ---
SW attempted to conduct assessment with patient. Patient was asleep and did not respond to SW. SW attempted 3x. SW will follow up with patient at a later time.
[2019-08-02 16:00] VITALS: BP 106/68
--- NOTE | 2019-08-02 17:30 | NUR ---
PT RESTING. NO SOB NOTED. NO SIGNS OF PAIN.
--- NOTE | 2019-08-02 18:50 | NUR ---
PT AWAKE. NO SOB NOTED. NO C/O PAIN AT THIS TIME. NPO MAINTAINED. NO SUICIDAL THOUGHTS PER PT THE ENTIRE SHIFT. STILL WITH SITTER AT THE BEDSIDE. WILL ENDORSE TO NEXT SHIFT NURSE FOR CONTINUITY OF CARE.
--- NOTE | 2019-08-02 19:20 | NUR ---
RECEIVED PT ON BED SLEEPING, EASILY AROUSABLE, AAOX4, VITAL SIGNS STABLE, COMPLAINING OF ABDOMINAL PAIN, MADE AWARE OF NEXT DUE TIME FOR PAIN MEDICATION, DENIES NAUSEA/VOMITING, MAINTAIN ON NPO EXCEPT MEDS, IVF INFUSING WELL, SAFETY MEASURES OBSERVED, SITTER IN PLACE.
[2019-08-02 20:00] VITALS: BP 96/59
--- NOTE | 2019-08-02 21:10 | NUR ---
MEDICATED PRN FOR PAIN WITH NORCO WITH EDUCATION PROVIDED, PT STATED SHE'S HUNGRY, DR CARRILLO MADE AWARE, WITH ORDER TO START ON CLEAR LIQUID, JELLO AND JUICE PROVIDED, TOLERATED WELL, ALL NEEDS ATTENDED.
[2019-08-02] MEDS ORDERED: ZOLPIDEM 5 MG TAB PO SCH (23:45)
--- NOTE | 2019-08-03 | NUR ---
PT SLEEPING, EASILY AROUSABLE, VITAL SIGNS STABLE, DENIES ANY PAIN, IVF INFUSING WELL, SITTER IN PLACE, CONTINUE TO MONITOR CLOSELY.
[2019-08-03 00:13] VITALS: BP 99/66
--- NOTE | 2019-08-03 00:16 | NUR ---
KAITLYNCO GIVEN AT THIS TIME FOR ABDOMINAL PAIN Addendum: 08/04/19 at 0324 by Agency Tima NEAL RN CORRECT DATE AND TIME IS 08/04/19 AT 0016
[2019-08-03] MEDS: HYDROcodone/APAP 7.5/325 MG 1 TAB PO PRN ×3 (03:20→19:57)
[2019-08-03 04:00] VITALS: BP 108/75
--- NOTE | 2019-08-03 04:00 | NUR ---
PT SLEEPING, EASLY AROUSABLE, VITAL SIGNS STABLE, DENIES ANY PAIN, NO N/V NOTED, IVF INFUSING WELL, MONITORED CLOSELY, SITTER IN PLACE.
[2019-08-03] MEDS: NACL 0.9% 1,000 ML IV SCH ×2 (05:26→14:48)
[2019-08-03] MEDS: LEVOTHYROXINE 0.05 MG TAB PO SCH (05:52)
--- NOTE | 2019-08-03 05:55 | NUR ---
PT SLEEPING, EASILY AROUSABLE, DUE PO SYNTHROID TAKEN, TOLERATED WELL, DENIES ABDOMINAL PAIN AT THIS TIME, IVF INFUSING WELL, MONITORED CLOSELY.
[2019-08-03 06:07] LABS: T4 (THYROXINE) 5.6 ug/dL (4.5-12.0)
--- NOTE | 2019-08-03 07:25 | NUR ---
PT SLEEPING, NO SIGNS OF DISTRESS, REPORT GIVEN TO ÁNGEL GRANGER FOR CONTINUITY OF CARE.
--- NOTE | 2019-08-03 07:30 | NUR ---
RECEIVED PT ABOUT THE PT FROM AM CHARGE NURSE, FLAQUITO, IS ASLEEP AND RESPIRATION IS EVEN, IV LINE ON THE LEFT HAND G. 22 WITH NS INFUSING [id number], NO SIGN OF DISTRESS NOTED AND WILL MONITOR PT.
[2019-08-03 07:35] LABS: BASOPHILS % (AUTO) 0.4 % (0.0-2.0); EOSINOPHILS # (AUTO) 0.1 K/uL (0-0.4); EOSINOPHILS % (AUTO) 4.5 % (0.0-4.0); HEMATOCRIT 29.1 % (36-48); HEMOGLOBIN 8.9 g/dL (12.0-16.0); LYMPHOCYTES # (AUTO) 0.7 K/uL (2.5-16.5); LYMPHOCYTES % (AUTO) 28.6 % (20.5-51.1); MEAN CORPUSCULAR HEMOGLOBIN 25 pg (27-31); MEAN CORPUSCULAR HGB CONC 31 g/dL (33-37); MEAN CORPUSCULAR VOLUME 80.8 fL (80-94); MONOCYTES # (AUTO) 0.3 K/uL (0.8-1.0); MONOCYTES % (AUTO) 10.3 % (1.7-9.3); NEUTROPHILS # (AUTO) 1.4 K/uL (1.8-7.7); NEUTROPHILS % (AUTO) 56.2 % (42.2-75.2); PLATELET COUNT (AUTO) 147 K/uL (140-450); RED CELL DISTRIBUTION WIDTH 22.8 % (11.6-13.7); WHITE BLOOD COUNT (AUTO) 2.5 K/uL (4.8-10.8)
[2019-08-03 07:57] LABS: ANION GAP 14.2 (8-16); CARBON DIOXIDE 21.9 mmol/L (21-32); CREATININE 0.5 mg/dL (0.6-1.3); POTASSIUM 4.1 mmol/L (3.5-5.1)
[2019-08-03 08:00] VITALS: BP 105/75
[2019-08-03] MEDS: LACTOBACILLUS RHAMNOSUS GG 1 EACH CAP PO SCH (09:09)
--- NOTE | 2019-08-03 09:09 | NUR ---
PT IS MAANNE-MARIEKE AND ORAL MEDICATION WAS GIVEN TO PT AND TOLERATED IT.
--- NOTE | 2019-08-03 11:30 | NUR ---
PT C/O PAIN RATE OF 8/10, ORAL PAIN MEDICATION WAS GIVEN, WILL RE-ASSESS PAIN AND MONITOR PT.
[2019-08-03] MEDS ORDERED: MORPHINE SULFATE 2 MG/ML SYR IVP PRN (14:50)
--- NOTE | 2019-08-03 14:50 | NUR ---
PT REFUSED TO TAKE THE TORADOL BUT INSTEAD TOLD DR. CHUA IF SHE CAN TAKE MORPHINE FOR THE LAST TIME AND SHE WILL BE FINE WITH TAKING NORCO FOR THE NEXT TIME SHE HAD PAIN.
--- NOTE | 2019-08-03 14:57 | NUR ---
PT VERBALIZED NOW THAT MORPHINE IS FINE WITH HER TO TAKE.
[2019-08-03] MEDS ORDERED: MORPHINE SULFATE 2 MG/ML SYR IVP SCH (15:00)
[2019-08-03 16:00] VITALS: BP 103/66
--- NOTE | 2019-08-03 16:34 | NUR ---
Packet faxed to [facility] for review.
--- NOTE | 2019-08-03 16:42 | NUR ---
Packet faxed to [facility] for review.
--- NOTE | 2019-08-03 18:00 | NUR ---
PT IS EATING AND CALM NOW.
--- NOTE | 2019-08-03 19:05 | NUR ---
ENDORSED PT TO SANITATION ENGINEER NURSEEDSON FOR CONTINUITY OF CARE.
--- NOTE | 2019-08-03 19:06 | NUR ---
RECEIVED REPORT FROM AM NURSE. PT WAS LAYING IN BED AWAKE. AOX4. NO SIGNS OF DIFFICULTY OF BREATHING OR SHORTNESS OF BREATH. IV LINE ON LEFT HAND, ASYMPTOMATIC, INTACT AND PATENT WITH NS AT 70ML/HR. AMBULATES WITH ASSIST. VITAL SIGNS STABLE. ON CLEAR LIQUID DIET. SKIN INTACT. SAFETY MEASURES OBSERVED. SITTER IN PLACE. WILL CONTINUE TO MONITOR.
[2019-08-03] MEDS: CHLORHEXADINE GLUC 2% CLOTH TP SCH (20:19)
--- NOTE | 2019-08-03 21:05 | NUR ---
ROUNDS MADE. PT ASLEEP. NO SIGNS OF RESPIRATORY DISTRESS. VISIBLE CHEST RISE AND FALL NOTED. MONITORED CLOSELY
--- NOTE | 2019-08-03 23:00 | NUR ---
ROUNDS MADE. PT ASLEEP. NO SIGNS OF RESPIRATORY DISTRESS. VISIBLE CHEST RISE AND FALL NOTED. MONITORED CLOSELY
[2019-08-03] MEDS: MUPIROCIN CA NASAL 2% 1GM TUBE NS SCH (23:31)
[2019-08-04] VITALS: BP 100/75
--- NOTE | 2019-08-04 | NUR ---
VITAL SIGNS TAKEN. PT ASLEEP WITH VISIBLE CHEST RISE AND FALL NOTED.
[2019-08-04] MEDS: HYDROcodone/APAP 7.5/325 MG 1 TAB PO PRN ×4 (00:16→20:50)
--- NOTE | 2019-08-04 00:16 | NUR ---
NORCO GIVEN AT THIS TIME FOR ABDOMINAL PAIN
[2019-08-04] MEDS: NACL 0.9% 1,000 ML IV SCH ×2 (01:02→15:19)
--- NOTE | 2019-08-04 01:30 | NUR ---
PT REQUESTED FOR A MENSTRUAL PAD AND CLEAN UNDERWEAR FOR ONGOING MENSTRUATION. PT IS AMBULATORY.
[2019-08-04] MEDS: KETOROLAC 15 MG/ML VIAL IVP PRN ×2 (01:48→21:57)
--- NOTE | 2019-08-04 01:48 | NUR ---
PT SITTING ON BED, STATES OF SHARP ABDOMINAL PAIN OF 7/10. PRN TORADOL GIVEN FOR ABDOMINAL PAIN.
--- NOTE | 2019-08-04 03:39 | NUR ---
ROUNDS MADE. PT IN BED ASLEEP. NO DISTRESS WITH VISIBLE CHEST RISE AND FALL NOTED. MONITORED CLOSELY
--- NOTE | 2019-08-04 04:04 | NUR ---
No update on bed placement with [facility] facilities, packets are still on file with [facility] and [facility]. [facility] will continue to call [facility] facilities regarding bed openings.
[2019-08-04] MEDS: LEVOTHYROXINE 0.05 MG TAB PO SCH (05:59)
--- NOTE | 2019-08-04 06:15 | NUR ---
ROUNDS MADE. PT SLEEPING COMFORTABLY IN BED. NO SIGNS OF RESPIRATORY DISTRESS. VISIBLE CHEST RISE AND FALL NOTED. CONTINUE TO MONITOR.
--- NOTE | 2019-08-04 07:15 | NUR ---
ENDORSED PT TO AM ÁNGEL MARTINEZ FOR CONTINUITY OF CARE, PT IN BED ASLEEP AND STABLE WITH NO DISTRESS. VISIBLE CHEST RISE AND FALL NOTED. IV LINE PATENT. SAFETY MEASURES AND SITTER IN PLACE.
--- NOTE | 2019-08-04 07:16 | NUR ---
RECEIVED ENDORSEMENT FROM SECURITIES COMPLIANCE EXAMINER NURSE. PATIENT IS AAOX4, ERITREAN SPEAKING. RESPIRATIONS ARE EVEN AND UNLABORED ON ROOM AIR. PATIENT DENIES PAIN AT THIS TIME. LEFT HAND 20G INTACT, PATENT, AND INFUSING IVF. PLAN OF CARE WAS REVIEWED WITH PATIENT, PATIENT VERBALIZED UNDERSTANDING. SAFETY MEASURES IN PLACE, SITTER AT BEDSIDE.
[2019-08-04 07:44] LABS: BASOPHILS % (AUTO) 0.5 % (0.0-2.0); EOSINOPHILS # (AUTO) 0.1 K/uL (0-0.4); EOSINOPHILS % (AUTO) 4.3 % (0.0-4.0); HEMATOCRIT 29.3 % (36-48); HEMOGLOBIN 8.9 g/dL (12.0-16.0); LYMPHOCYTES # (AUTO) 0.9 K/uL (2.5-16.5); LYMPHOCYTES % (AUTO) 37.6 % (20.5-51.1); MEAN CORPUSCULAR HEMOGLOBIN 25 pg (27-31); MEAN CORPUSCULAR HGB CONC 30 g/dL (33-37); MEAN CORPUSCULAR VOLUME 81.8 fL (80-94); MONOCYTES # (AUTO) 0.3 K/uL (0.8-1.0); MONOCYTES % (AUTO) 11.9 % (1.7-9.3); NEUTROPHILS % (AUTO) 45.7 % (42.2-75.2); PLATELET COUNT (AUTO) 144 K/uL (140-450); RED BLOOD CELL COUNT(AUTO) 3.58 MIL/uL (4.20-5.40); RED CELL DISTRIBUTION WIDTH 22.5 % (11.6-13.7); WHITE BLOOD COUNT (AUTO) 2.3 K/uL (4.8-10.8)
[2019-08-04 07:58] LABS: CARBON DIOXIDE 25.7 mmol/L (21-32); CREATININE 0.6 mg/dL (0.6-1.3); POTASSIUM 3.7 mmol/L (3.5-5.1)
[2019-08-04 08:00] VITALS: BP 112/79
--- NOTE | 2019-08-04 09:05 | NUR ---
PATIENT SLEEPING, VISIBLE RISE AND FALL OF CHEST. NO OTHER NEEDS AT THIS TIME.
--- NOTE | 2019-08-04 09:57 | NUR ---
Received report from lieutenant shift supervisor. Will continue to look for placement.
[2019-08-04] MEDS: LACTOBACILLUS RHAMNOSUS GG 1 EACH CAP PO SCH (10:31)
--- NOTE | 2019-08-04 10:31 | NUR ---
ADMINISTERED SCHEDULED MEDICATION. PATIENT TOLERATED WELL. NO OTHER NEEDS AT THIS TIME.
--- NOTE | 2019-08-04 10:34 | NUR ---
[facility], NO BEDS AVAILABLE YET.
--- NOTE | 2019-08-04 11:59 | NUR ---
PATIENT RESTING IN BED. SITTER AT BEDSIDE. NO OTHER NEEDS AT THIS TIME.
--- NOTE | 2019-08-04 13:24 | NUR ---
PATIENT SLEEPING, VISIBLE RISE AND FALL OF CHEST. NO OTHER NEEDS AT THIS TIME.
--- NOTE | 2019-08-04 15:46 | NUR ---
PATIENT LAYING QUIETLY IN BED. NO OTHER NEEDS AT THIS TIME. SITTER AT BEDSIDE.
[2019-08-04 16:00] VITALS: BP 118/86
--- NOTE | 2019-08-04 17:02 | NUR ---
PATIENT AMBULATED TO REST ROOM.NO OTHER NEEDS AT THIS TIME. WILL CONTINUE TO MONITOR.
--- NOTE | 2019-08-04 19:24 | NUR ---
ENDORSED TO INDUSTRIAL ENGINEERING ANALYST NURSE FOR CONTINUITY OF CARE. PATIENT IS STABLE AT THIS TIME.
--- NOTE | 2019-08-04 19:24 | NUR ---
RECIEVED PT AAOX4 , NID , ON 1:1 SITTER , ON NPO EXCEPT MEDS - C/O OF ABDL PAIN - WILL MEDICATE , PLAN OF CARE DISCUSSED AND VERBALIZE UNDERSTANDING , ON SUICIDAL /SAFETY PRECAUTION PROTOCOL , WILL CONT. TO MONITOR..
[2019-08-04] MEDS: MUPIROCIN CA NASAL 2% 1GM TUBE NS SCH (21:00)
[2019-08-04] MEDS: CHLORHEXADINE GLUC 2% CLOTH TP SCH (21:00)
--- NOTE | 2019-08-04 22:00 | NUR ---
MADE ROUNDS , NO RESP. DISTRESS NOTED AT THIS TIME , BUT STILL PT IS IN PAIN - WILL MEDICATE.WILL CONTINUE TO MONITOR , ON 1 :1 SITTER
[2019-08-05] VITALS: BP 113/67
--- NOTE | 2019-08-05 | NUR ---
MADE ROUNDS , NO DISTRESS NOTED AT THIS TIME , ON 1:1 SITTER.
--- NOTE | 2019-08-05 02:00 | NUR ---
MADE ROUNDS , NO DISTRESS NOTED AT THIS TIME , ON1:1 SITTER.
[2019-08-05] MEDS: HYDROcodone/APAP 7.5/325 MG 1 TAB PO PRN ×5 (02:26→21:29)
--- NOTE | 2019-08-05 04:13 | NUR ---
Follow up calls were made to [facility] contracted facilities, still no update on any bed openings. [facility] will continue calling for bed placement.
[2019-08-05] MEDS: NACL 0.9% 1,000 ML IV SCH (05:57)
[2019-08-05] MEDS: LEVOTHYROXINE 0.05 MG TAB PO SCH (05:57)
--- NOTE | 2019-08-05 07:20 | NUR ---
ENDORSED TO AM SHIFT WITH STABLE CONDITION
--- NOTE | 2019-08-05 07:21 | NUR ---
RECEIVED REPORT FROM MARKETING COMMUNICATIONS ASSOCIATE NURSE AT BEDSIDE. PATIENT IS AAOX4. LUNG SOUNDS CLEAR, RESPIRATIONS ARE EVEN AND UNLABORED ON ROOM AIR. IV CATH NOTED TO LEFT WRIST 20G, INFUSING NS AT 70ML/HR, INTACT, PATENT, AND ASYMPTOMATIC. SAFETY MEASURES IN PLACE, WILL CONTINUE TO MONITOR.
--- NOTE | 2019-08-05 07:30 | NUR ---
PT IS AMBULATORY, WALKED TO RESTROOM, URINEX1, RETURNED TO BED SAFELY. PT C/O ABD PAIN, WILL MEDICATE ORDERED.
[2019-08-05] MEDS: KETOROLAC 15 MG/ML VIAL IVP PRN ×2 (07:43→17:00)
[2019-08-05 08:00] VITALS: BP 125/83
[2019-08-05] MEDS ORDERED: SIMETHICONE 80 MG TAB.CHEW PO SCH (08:02)
[2019-08-05] MEDS: LACTOBACILLUS RHAMNOSUS GG 1 EACH CAP PO SCH (08:31)
[2019-08-05] MEDS: ESCITALOPRAM 20 MG TAB PO SCH (08:31)
--- NOTE | 2019-08-05 08:55 | NUR ---
PAGED DR BANUELOS'S EXCHANGE ABOUT 7000 HOLD EXPIRING. WAITING FOR CALL BACK. Addendum: 08/05/19 at 0923 by Akira Sousa RN PLEASE DISCARD THIS NOTE, WRONG PT.
--- NOTE | 2019-08-05 10:35 | NUR ---
DR MAK HAS SEEN PT.
[2019-08-05 16:00] VITALS: BP 120/75
--- NOTE | 2019-08-05 17:25 | NUR ---
CALLED DR MAK, MADE HER AWARE PT HAS RUQ ABD PAIN, ALREADY MEDICATED WITH TORADOL, BUT PT STILL COMPLAINING AND ASKING FOR STRONGER PAIN MEDS. NORCO 7.5MG IS DUE AT 6PM. DR MAK SAID OK TO GIVE NORCO AT THIS TIME.
--- NOTE | 2019-08-05 18:07 | NUR ---
CALLED DR JOHNSON RESIDENT. MADE HIM AWARE PT C/O ABD PAIN GETTING WORSE AFTER EATING PUDDING. TORADOL WAS GIVEN AT [address] JOHNSON SAID WILL COME TO SEE PT.
[2019-08-05] MEDS ORDERED: MORPHINE SULFATE 2 MG/ML SYR ONE (18:25)
[2019-08-05] MEDS: ONDANSETRON 4 MG/2 ML VIAL IM/IVP PRN (18:30)
[2019-08-05] MEDS: MORPHINE SULFATE 2 MG/ML SYR IVP SCH (18:31)
--- NOTE | 2019-08-05 18:35 | NUR ---
DR JOHNSON ASSESSED PT. MORPHINE 1MG IVP AND ZOFRAN 4MG IVP HAS BEEN GIVEN PER MD ORDER. ALSO MADE DR JOHNSON AWARE THAT US TECH SAID WILL DO THE ABD US TEST EARLY TOMORROW MORNING BECAUSE PT NEEDS TO BE NPO FOR 6-8 HOURS.
--- NOTE | 2019-08-05 19:00 | NUR ---
PT HAS EYES CLOSED, BREATHING EVEN AND UNLABORED, FLACC 0 AT THIS TIME. NPO AFTER MIDNIGHT SIGN POSTED
--- NOTE | 2019-08-05 19:15 | NUR ---
RECEIVED REPORT FROM MICHAEL NEAL AM SHIFT. PT IS SLEEPING AT THIS TIME, NO S/S OF RESP DISTRESS, NO SOB. REP EVEN AND NO LABOR. NO S/S OF PAIN OR DISCOMFORT NOTED. SKIN WARM TO TOUCH. PT CONTINUE ON ROOM AIR. IV LINE TO LEFT WRIST NO 20.IV NS AT 20 CC/HR RUNNING WELL. PT ON SITTER. D/T HX OF SUICIDAL ATTEMPT.NO EPISODE AT THIS TIME. NO FEVER NOTED T 97.4. PT IS CONTINENT BOWEL AND BLADDER. PT ABLE TO WALK WITH ASSISTANCE TO REST ROOM. GENTLE CARE GIVEN. KEPT CLEAN AND DRY.
[2019-08-05] MEDS: MUPIROCIN CA NASAL 2% 1GM TUBE NS SCH (20:39)
[2019-08-05] MEDS: CHLORHEXADINE GLUC 2% CLOTH TP SCH (20:40)
--- NOTE | 2019-08-05 21:00 | NUR ---
BACTROBAN APPLY TO BOTH NOSTRIL AND TOLERATED WELL.
--- NOTE | 2019-08-05 21:29 | NUR ---
NORCO 7.5/325 MG 1 TAB GIVEN D/T PT C/O MODERATED PAIN TO ABD WITH PAIN LEVEL6/10. REPOSITION PT FOR COMFORT. CONT TO MONITOR.
--- NOTE | 2019-08-05 22:29 | NUR ---
PT SLEEP WELL, NO PAIN NOTED AT THIS TIME.
--- NOTE | 2019-08-05 23:35 | NUR ---
MADE AWARE THAT PT C/O PAIN 08/03, NORCO WAS GIVEN AND OFFER FOR TORADOL FOR PAIN, PT SAYING TORADOL WILL NOT HELPING HER, FACIAL GRIMMICING NOTED, PT LOOK RESTLESS, PT ASKING FOR ANY OTHER MEDICATION. AWARE AND ORDER MORPHINE 1 MG X1 IVP. MED GIVEN ORDER. CONTINUE TO MONITOR CLOSELY.
[2019-08-06] VITALS: BP 111/77
[2019-08-06] MEDS ORDERED: MORPHINE SULFATE 2 MG/ML SYR IVP SCH
--- NOTE | 2019-08-06 00:14 | NUR ---
PT NO S/S OF PAIN AT THIS TIME . PT SLEEPING WELL.CONTINUE SITTER.
--- NOTE | 2019-08-06 00:21 | NUR ---
Called the following facilities: [facility] s/w Amrit no beds [facility] s/w Cecile no beds [facility] s/w Marcia no beds [facility] s/w Alejandra no beds [facility] s/w Andrés No beds [facility] s/w Jennie no beds [facility] s/w Olinda no beds
[2019-08-06] MEDS: HYDROcodone/APAP 7.5/325 MG 1 TAB PO PRN ×5 (02:18→22:50)
--- NOTE | 2019-08-06 02:20 | NUR ---
PT WAS C/O PAIN ABD 04/03,ASK PT TO REPOSITION AND PRN NORCO GIVEN ORDER.
--- NOTE | 2019-08-06 03:20 | NUR ---
PT SLEEPING WELL, NO S/S OF PAIN OR DISCOMFORT AT THIS TIME.
--- NOTE | 2019-08-06 05:00 | NUR ---
AM CARE GIVEN. PT BACK TO SLEEP.
[2019-08-06] MEDS: LEVOTHYROXINE 0.05 MG TAB PO SCH (05:57)
[2019-08-06] MEDS: NACL 0.9% 1,000 ML IV SCH (06:00)
[2019-08-06] MEDS: KETOROLAC 15 MG/ML VIAL IVP PRN ×3 (06:14→22:06)
--- NOTE | 2019-08-06 06:24 | NUR ---
BLOOD DRAWN FOR CBC,BMP,MAG,PHOS AND AMONIA PLASMA . PT AWAKE AND C/O ABD PAIN 7/10 FACIAL GRIMMICING NOTED, PT REQUEST TORADOL INJ. PRN TORADOL GIVEN ORDER.
--- NOTE | 2019-08-06 06:42 | NUR ---
Still no beds at the following contracted facilities. Will endorse to next oncoming shift to f/up with contracted facilities for possible discharges
[2019-08-06 06:58] LABS: HEMATOCRIT 28.7 % (36-48); HEMOGLOBIN 8.8 g/dL (12.0-16.0); MEAN CORPUSCULAR HEMOGLOBIN 25 pg (27-31); MEAN CORPUSCULAR HGB CONC 31 g/dL (33-37); MEAN CORPUSCULAR VOLUME 80.7 fL (80-94); PLATELET COUNT (AUTO) 132 K/uL (140-450); RED BLOOD CELL COUNT(AUTO) 3.56 MIL/uL (4.20-5.40); RED CELL DISTRIBUTION WIDTH 22.4 % (11.6-13.7)
--- NOTE | 2019-08-06 06:58 | NUR ---
NO PAIN NOTED.PT LOOK RELAX AND CALM, PT IS SLEEPING.
[2019-08-06 07:08] LABS: WHITE BLOOD COUNT (AUTO) 1.9 K/uL (4.8-10.8)
[2019-08-06 07:18] LABS: MAGNESIUM 1.8 mg/dL (1.8-2.4); PHOSPHORUS 3.3 mg/dL (2.5-4.9)
--- NOTE | 2019-08-06 07:18 | NUR ---
REPORT GIVEN TO AM SHIFT .PT IS SLEEPING.
--- NOTE | 2019-08-06 07:30 | NUR ---
RECEIVED REPORT FROM PM RN . PT SLEEPING BUT AROUSABLE. ON RA. NO S/S OF RESP DISTRESS NOTED. SKIN WARM TO TOUCH. IV LINE TO LEFT WRIST NO 20 RUNNING NS AT 20 CC/HR RUNNING WELL. PT ON SITTER. PT DENIES SUICIDAL ATTEMPT AT THIS TIME. NO FEVER PER PM NURSE, PT ABLE TO WALK WITH ASSISTANCE TO REST ROOM. INTRODUCED MYSELF, WILL CONTINUE TO MONITOR.
[2019-08-06 07:33] LABS: CARBON DIOXIDE 26.8 mmol/L (21-32); CREATININE 0.6 mg/dL (0.6-1.3); POTASSIUM 3.8 mmol/L (3.5-5.1)
[2019-08-06 07:51] LABS: BASOPHILS % (MANUAL) 0 % (0-2); EOSINOPHILS % (MANUAL) 8 % (0-4); LYMPHOCYTES % (MANUAL) 42 % (20-46); MONOCYTES % (MANUAL) 12 % (5-12)
--- NOTE | 2019-08-06 07:54 | NUR ---
US TECH AT BEDSIDE.
[2019-08-06 08:00] VITALS: BP 111/76
[2019-08-06] MEDS: LACTOBACILLUS RHAMNOSUS GG 1 EACH CAP PO SCH (08:44)
[2019-08-06] MEDS: ESCITALOPRAM 20 MG TAB PO SCH (08:44)
[2019-08-06 10:36] LABS: ALBUMIN 2.7 g/dL (3.4-5.0); BILIRUBIN,DIRECT 0.1 mg/dL (0.0-0.3); TOTAL BILIRUBIN 0.2 mg/dL (0.0-1.0)
--- NOTE | 2019-08-06 14:06 | NUR ---
PT C/O ABD PAIN, TORODOL GIVEN TO PT ORDERED. WILL CONTINUE TO MONITOR.
--- NOTE | 2019-08-06 14:35 | NUR ---
pt sleeping in bed. no s/s of pain or discomfort noted at this time.
[2019-08-06 16:00] VITALS: BP 111/62
--- NOTE | 2019-08-06 17:00 | NUR ---
PT ACCIDENTLY PULLED OUT IV. REINSERTED A NEW # 22 IV TO RIGHT HAND.
--- NOTE | 2019-08-06 17:05 | NUR ---
PT AMBULATES TO BATHROOM.
[2019-08-06] MEDS: MORPHINE SULFATE 2 MG/ML SYR IVP SCH (18:02)
--- NOTE | 2019-08-06 18:09 | NUR ---
PT EATING DINNER IN BED. DENIES ANY PLAN TO HURT HERSELF.
--- NOTE | 2019-08-06 18:48 | NUR ---
PT RESTING BED, PT STATE SHE FEELS MUCH BETTER. ASKED PT AGAIN DOES SHE HAVE ANY PLAN TO HURT HERSELF. PT STATED " NO ".
--- NOTE | 2019-08-06 19:45 | NUR ---
RECEIVED REPORT OF PT.FROM AM RN.PT IS AWAKE,A&O.IVF INFUSING WELL.SITTER IS PRESENT. NO C/O PAIN.WILL CONTINUE MONITORING.
[2019-08-06] MEDS: MUPIROCIN CA NASAL 2% 1GM TUBE NS SCH (21:17)
[2019-08-06] MEDS: CHLORHEXADINE GLUC 2% CLOTH TP SCH (21:18)
--- NOTE | 2019-08-06 22:35 | NUR ---
HAD C/O ABD.PAIN. TORADOL IVP GIVEN EARLIER.STILL IS ON PAIN.WILL GIVE NORCO.
--- NOTE | 2019-08-06 23:50 | NUR ---
PT STATED ALTON ALSO DIDN'T WORK FOR HER AND ASKED FOR SOMETHING ELSE.WILL CALL .
[2019-08-07] VITALS: BP 118/76
[2019-08-07] MEDS ORDERED: MORPHINE SULFATE 2 MG/ML SYR ONE (00:30)
[2019-08-07] MEDS ORDERED: MORPHINE SULFATE 2 MG/ML SYR IVP SCH (01:00)
--- NOTE | 2019-08-07 01:38 | NUR ---
ONE DOSE MORPHINE IVP GIVEN EARLIER.SHE IS SLEEPING NOW W/O S/S OF ANY PAIN.
--- NOTE | 2019-08-07 04:15 | NUR ---
HAD C/O CONSTIPATION.DULCOLAX ID GIVEN.HAS SMALL BM.HR IS SB.WILL MONITOR PT. Addendum: 08/07/19 at 0606 by Samuel Lopez RN HAD C/O ................................AMENDED
[2019-08-07] MEDS: HYDROcodone/APAP 7.5/325 MG 1 TAB PO PRN (05:00)
[2019-08-07] MEDS: NACL 0.9% 1,000 ML IV SCH ×3 (05:01→17:57)
[2019-08-07] MEDS: LEVOTHYROXINE 0.05 MG TAB PO SCH (05:46)
--- NOTE | 2019-08-07 06:03 | NUR ---
HAD C/O OH GAVE HER PROTONIX PO EARLIER. Addendum: 08/07/19 at 0606 by Samuel Lopez RN HAD C/O ........................................AMENDED.
--- NOTE | 2019-08-07 06:07 | NUR ---
HAD C/O ABD.PAIN NORCO PO GIVEN.
--- NOTE | 2019-08-07 07:15 | NUR ---
RECEIVED REPORT FROM SCRAP METAL PROCESSING WORKER CHARGE NURSE ELIJAH FOR CONTINUITY OF CARE. PT IN STABLE CONDITION. RESPIRATIONS EVEN AND UNLABORED. IV INTACT AND PATENT. SAFETY MEASURES IN PLACE. BED IN LOW POSITION. CALL LIGHT AT BEDSIDE. WILL CONTINUE TO MONITOR.
[2019-08-07 07:48] LABS: HEMATOCRIT 28.6 % (36-48); HEMOGLOBIN 8.8 g/dL (12.0-16.0); MEAN CORPUSCULAR HEMOGLOBIN 25 pg (27-31); MEAN CORPUSCULAR HGB CONC 31 g/dL (33-37); MEAN CORPUSCULAR VOLUME 80.3 fL (80-94); PLATELET COUNT (AUTO) 139 K/uL (140-450); RED BLOOD CELL COUNT(AUTO) 3.56 MIL/uL (4.20-5.40); RED CELL DISTRIBUTION WIDTH 22.3 % (11.6-13.7); WHITE BLOOD COUNT (AUTO) 2.3 K/uL (4.8-10.8)
[2019-08-07 08:00] VITALS: BP 106/76
[2019-08-07] MEDS ORDERED: KETOROLAC 15 MG/ML VIAL IVP PRN (08:20)
[2019-08-07 08:45] LABS: MAGNESIUM 1.9 mg/dL (1.8-2.4); PHOSPHORUS 3.5 mg/dL (2.5-4.9)
[2019-08-07 09:13] LABS: ANION GAP 12.5 (8-16); CARBON DIOXIDE 27.4 mmol/L (21-32); CREATININE 0.6 mg/dL (0.6-1.3); POTASSIUM 3.9 mmol/L (3.5-5.1)
[2019-08-07] MEDS: ESCITALOPRAM 20 MG TAB PO SCH (09:42)
[2019-08-07] MEDS: MORPHINE SULFATE 2 MG/ML SYR IVP SCH (09:42)
[2019-08-07] MEDS: LACTOBACILLUS RHAMNOSUS GG 1 EACH CAP PO SCH (09:42)
--- NOTE | 2019-08-07 09:42 | NUR ---
GAVE PRN PAIN MEDICATION PER PT REQUEST. PT TOLERATED WELL. WILL CONTINUE TO MONITOR.
[2019-08-07 09:43] LABS: EOSINOPHILS % (MANUAL) 4 % (0-4); LYMPHOCYTES % (MANUAL) 42 % (20-46); MONOCYTES % (MANUAL) 14 % (5-12)
[2019-08-07] MEDS: MORPHINE SULFATE 2 MG/ML SYR IVP PRN ×3 (12:50→20:59)
--- NOTE | 2019-08-07 12:50 | NUR ---
GAVE PRN PAIN MEDICATION PER PT REQUEST. PT TOLERATED WELL. WILL CONTINUE TO MONITOR.
--- NOTE | 2019-08-07 14:02 | NUR ---
PT LYING IN BED SLEEP AT THIS TIME. RESPIRATIONS EVEN AND UNLABORED. BED IN LOW POSITION. CALL LIGHT AT BEDSIDE. WILL CONTINUE TO MONITOR.
[2019-08-07 16:00] VITALS: BP 116/74
--- NOTE | 2019-08-07 16:44 | NUR ---
GAVE PRN PAIN MEDICATION PER PT REQUEST. PT TOLERATED WELL. WILL CONTINUE TO MONITOR. BED IN LOW POSITION. CALL LIGHT AT BEDSIDE.
[2019-08-07] MEDS ORDERED: LEVOFLOXACIN 750 MG/D5W PREMIX 150 ML IV SCH (17:00)
--- NOTE | 2019-08-07 19:20 | NUR ---
GAVE REPORT TO LABORATORY VETERINARIAN NURSE FOR CONTINUITY OF CARE. PT IN STABLE CONDITION.
--- NOTE | 2019-08-07 19:21 | NUR ---
RECEIVED REPORT FROM AM SHIFT FOR CONTINUITY OF CARE. PT IN STABLE CONDITION. RESPIRATIONS EVEN AND UNLABORED. IV INTACT AND PATENT. SAFETY MEASURES IN PLACE. BED IN LOW POSITION. CALL LIGHT AT BEDSIDE. WILL CONTINUE TO MONITOR.
[2019-08-07] MEDS ORDERED: MORPHINE SULFATE 2 MG/ML SYR IVP PRN (19:25)
[2019-08-07] MEDS: MUPIROCIN CA NASAL 2% 1GM TUBE NS SCH (20:57)
[2019-08-07] MEDS: CHLORHEXADINE GLUC 2% CLOTH TP SCH (20:58)
--- NOTE | 2019-08-07 20:59 | NUR ---
PT PAIN 10/10 SEVERE PAIN; GIVEN MOPRHINE SO4 Q 3 ORDERED; EXPLAINED THE SIDE EFFECTS PER PT HER PAIN LEVELS ARE HIGH AND THAT HER PAIN OCCURS EVERY 3 HRS
[2019-08-07] MEDS ORDERED: traZODone 50 MG TAB PO SCH (21:00)
--- NOTE | 2019-08-07 21:00 | NUR ---
RECEIVED REPORT FROM AM SHIFT FOR CONTINUITY OF CARE. PT IN STABLE CONDITION. RESPIRATIONS EVEN AND UNLABORED. IV INTACT AND PATENT. SAFETY MEASURES IN PLACE. BED IN LOW POSITION. CALL LIGHT AT BEDSIDE. WILL CONTINUE TO MONITOR. Addendum: 08/08/19 at 0136 [place] [address]/07/19
--- NOTE | 2019-08-07 21:01 | NUR ---
PT D/C 0734 HOLD SINCE 1224; [facility] REF[facility] ; [facility] CONSULT FOR NURSING HOME REFERRALS; 14 DAY = 1 REFILL SUPPLY OF MEDS
[2019-08-08] MEDS: MORPHINE SULFATE 2 MG/ML SYR IVP PRN ×4 (00:01→12:49)
--- NOTE | 2019-08-08 00:01 | NUR ---
PT COMPLAINING OF 10/10 ABDOMINAL PAIN EVERY 3 HRS. GAVE PAIN MEDS INDICATED
[2019-08-08 03:52] VITALS: BP 109/70
[2019-08-08] MEDS: NACL 0.9% 1,000 ML IV SCH ×3 (04:37→09:48)
--- NOTE | 2019-08-08 05:21 | NUR ---
PT SLEEPING; ABLE TO TURN ON HER OWN FROM SIDE TO SIDE. NO COMPLAINTS OF PAIN ; WILL CONTINUE TO MONITOR
[2019-08-08] MEDS: LEVOTHYROXINE 0.05 MG TAB PO SCH (05:52)
--- NOTE | 2019-08-08 06:08 | NUR ---
At this time no placement found , will endorsed to AM shift to continue to look for placement. Nichol Charge nurse aware.
[2019-08-08] MEDS: MORPHINE SULFATE 2 MG/ML SYR IVP SCH ×2 (06:32→06:35)
--- NOTE | 2019-08-08 07:25 | NUR ---
RECEIVED REPORT FROM INTERNAL GRINDING MACHINE OPERATOR NURSE. PT AAOX4, NO C/O PAIN. RESPIRATIONS EVEN AND UNLABORED ON RA. IV ON RT HAND 20 GA RUNNING IVF PER ORDER. ABD SOFT, ACTIVE BS THROUGHOUT. SKIN IS INTACT, WARM TO TOUCH. PT ON FALL RISK PRECAUTIONS, SAFETY MEASURES IN PLACE. REVIEWED POC WITH PT, PT VERBALIZED UNDERSTANDING. PT ASSISTED TO RESTROOM, AMBULATING WITH IV POLE.
[2019-08-08 08:00] VITALS: BP 142/75
[2019-08-08 08:19] LABS: MAGNESIUM 1.7 mg/dL (1.8-2.4); PHOSPHORUS 3.5 mg/dL (2.5-4.9)
[2019-08-08 08:21] LABS: ANION GAP 8.2 (8-16); CARBON DIOXIDE 28.4 mmol/L (21-32); CREATININE 0.5 mg/dL (0.6-1.3); POTASSIUM 3.6 mmol/L (3.5-5.1)
[2019-08-08 08:42] LABS: BASOPHILS % (AUTO) 0.7 % (0.0-2.0); EOSINOPHILS # (AUTO) 0.1 K/uL (0-0.4); EOSINOPHILS % (AUTO) 5.7 % (0.0-4.0); HEMATOCRIT 29.1 % (36-48); HEMOGLOBIN 8.8 g/dL (12.0-16.0); LYMPHOCYTES # (AUTO) 0.8 K/uL (2.5-16.5); MEAN CORPUSCULAR HEMOGLOBIN 25 pg (27-31); MEAN CORPUSCULAR HGB CONC 30 g/dL (33-37); MEAN CORPUSCULAR VOLUME 80.8 fL (80-94); MONOCYTES # (AUTO) 0.4 K/uL (0.8-1.0); MONOCYTES % (AUTO) 19.5 % (1.7-9.3); NEUTROPHILS # (AUTO) 0.6 K/uL (1.8-7.7); NEUTROPHILS % (AUTO) 33.1 % (42.2-75.2); PLATELET COUNT (AUTO) 142 K/uL (140-450); RED CELL DISTRIBUTION WIDTH 22.5 % (11.6-13.7)
[2019-08-08 08:51] LABS: WHITE BLOOD COUNT (AUTO) 1.9 K/uL (4.8-10.8)
[2019-08-08] MEDS ORDERED: LACTOBACILLUS RHAMNOSUS GG 1 EACH CAP PO SCH (09:00)
[2019-08-08] MEDS ORDERED: ESCI20TA47 PO (09:03)
[2019-08-08] MEDS ORDERED: TRAZ-466 PO (09:03)
[2019-08-08] MEDS ORDERED: LEVO750T2 PO (09:03)
[2019-08-08] MEDS: ESCITALOPRAM 20 MG TAB PO SCH (09:26)
[2019-08-08] MEDS: ONDANSETRON 4 MG/2 ML VIAL IM/IVP PRN (09:34)
--- NOTE | 2019-08-08 09:34 | NUR ---
ADMINISTERED LACTOBACILLUS, LEXAPRO PER ORDER, PT AWARE OF INDICATIONS AND POTENTIAL SIDE EFFECTS. PT ALSO C/O NAUSEA, GIVEN ZOFRAN. PT C/O LEVEL 7/10 PAIN TO ABDOMEN, GIVEN MORPHINE PER ORDER. WILL CONTINUE TO MONITOR.
--- NOTE | 2019-08-08 09:41 | NUR ---
Received report from slot shift supervisor. Will continue to look for placement.
[2019-08-08] MEDS ORDERED: QUET25TA PO (10:08)
--- NOTE | 2019-08-08 10:34 | NUR ---
PT HAS NO C/O NAUSEA OR PAIN AT THIS TIME. RESPIRATIONS EVEN AND UNLABORED ON RA.
--- NOTE | 2019-08-08 12:49 | NUR ---
PT C/O LEVEL 05/03 TO ABDOMEN. ADMINISTERED MORPHINE PER ORDER. PT SITTING UP IN BED HAVING LUNCH.
--- NOTE | 2019-08-08 13:39 | NUR ---
S/W Yenny patients RN. Per Yenny, patient is going to be discharged
--- NOTE | 2019-08-08 14:30 | NUR ---
PT HAS BEEN DISCHARGED. ALL PAPERWORK SIGNED, ALL QUESTIONS ANSWERED. ALL BELONGINGS, BUS PASSES, PACKED LUNCH, MENTAL HEALTH AND COMMUNITY RESOURCES, AND PRESCRIPTIONS IN PT POSSESSION. IV DISCONTINUED WITH CANNULA INTACT. WRISTBANDS REMOVED. PT REFUSED WHEELCHAIR, AMBULATING WITH STEADY GAIT, RN AT SIDE. PT IN STABLE CONDITION.
== END 2019-08-08 14:30 | disposition home or self-care (01) | DRG 817 ==
LOC: MED 14:58 → MTU 18:17
PROVIDERS: ADMIT General Practice; ATTEND General Practice
DX: T42.4X2A Poisoning by benzodiazepines, intentional self-harm, initial encounter (principal); G92 Toxic encephalopathy; K85.20 Alcohol induced acute pancreatitis without necrosis or infection; R45.851 Suicidal ideations; R65.10 Systemic inflammatory response syndrome (SIRS) of non-infectious origin without acute organ dysfunction; F20.9 Schizophrenia, unspecified; N12 Tubulo-interstitial nephritis, not specified as acute or chronic; D72.819 Decreased white blood cell count, unspecified; F31.9 Bipolar disorder, unspecified; E03.9 Hypothyroidism, unspecified; E78.1 Pure hyperglyceridemia; Z59.0 Homelessness; Z91.5 Personal history of self-harm; Z98.84 Bariatric surgery status; Z88.5 Allergy status to narcotic agent; Z88.2 Allergy status to sulfonamides; Z88.8 Allergy status to other drugs, medicaments and biological substances; Z91.02 Food additives allergy status; Z82.3 Family history of stroke; Z82.49 Family history of ischemic heart disease and other diseases of the circulatory system
CPT/HCPCS: 36415; 71045; 76705; 80048; 80053; 80076; 80178; 80305; 81001; 82140; 82150; 82607; 83036; 83605; 83690; 83735; 83880; 84100; 84436; 84439; 84443; 84479; 84484; 85025; 85610; 85730; 87081; 87086; 87186; 93005; 99285; G0480; G0482; J0696; J1885; J1956; J2270; J2405; J3480; J7030; J7060; Q0092